=== PATIENT | male | born 1995 | race Caucasian/White ===

== ENCOUNTER 2017-01-25 23:48 | Emergency (ER) | payer MEDICARE | END 2017-01-26 05:56 | disposition home or self-care (01) | LOC: ER1 23:48 | DX: S40.861A Insect bite (nonvenomous) of right upper arm, initial encounter (principal); L02.411 Cutaneous abscess of right axilla; F17.210 Nicotine dependence, cigarettes, uncomplicated; Z88.7 Allergy status to serum and vaccine; W57.XXXA Bitten or stung by nonvenomous insect and other nonvenomous arthropods, initial encounter | CPT/HCPCS: 86403; 87081; 87880; 99282 ==